=== PATIENT | male | born 1990 | race Asian ===

== ENCOUNTER 2017-11-16 15:51 | Emergency (ER) | payer SELFPAY ==
[~2017-11-16] VITALS: Ht 177.8 cm; Wt 145.6 kg
[2017-11-16 16:17] VITALS: Ht 177.8 cm; Wt 145.6 kg
[2017-11-16 18:13] VITALS: BP 148/100
== END 2017-11-16 18:13 | disposition home or self-care (01) ==
LOC: ED 15:51
DX: J02.9 Acute pharyngitis, unspecified (principal); R11.2 Nausea with vomiting, unspecified
CPT/HCPCS: 80201; 87804